=== PATIENT | female | born 1970 | race Two or more races ===

== ENCOUNTER 2019-03-26 19:34 | Emergency (ER) | payer MEDICAID ==
[~2019-03-26] VITALS: Ht 157.5 cm; Wt 80.9 kg
[2019-03-26] MEDS ORDERED: KETOROLAC 60MG/2ML VIAL IM ONE (22:00)
[2019-03-26 22:24] VITALS: BP 137/68
== END 2019-03-26 23:51 | disposition home or self-care (01) ==
LOC: ER 19:34
DX: B02.9 Zoster without complications (principal); M62.838 Other muscle spasm; Z98.51 Tubal ligation status
CPT/HCPCS: 81025; 96372; 99283; J1885